=== PATIENT | male | born 1985 | race African-American/Black ===

== ENCOUNTER 2020-11-22 10:04 | Emergency (ER) | payer OTHER ==
[2020-11-22 10:17] VITALS: BP 129/62; TEMP 97.8; BMI 23.6
[2020-11-22] MEDS ORDERED: EPINEPHrine 1 MG/ML VIAL IM ONE (10:46)
[2020-11-22] MEDS ORDERED: FAMOTIDINE 20 MG/50 ML IVPB 20 MG/50 ML MG IVPB ONE ×2 (10:47→10:58)
[2020-11-22] MEDS ORDERED: DEXAMETHASONE SOD PHOSPHATE 10 MG/1 ML VIAL IVPUSH ONE (10:47)
[2020-11-22] MEDS ORDERED: DEXAMETHASONE SOD PHOSPHATE 10 MG/1 ML VIAL ONE (10:58)
[2020-11-22] MEDS ORDERED: EPINEPHrine/PF 1 MG/1 ML (1:1,000) AMPULE ONE (10:58)
[2020-11-22 12:01] VITALS: PULSE 80
== END 2020-11-22 13:17 | disposition home or self-care (01) ==
LOC: JER 10:04
PROC: 3E033GC Introduction of Other Therapeutic Substance into Peripheral Vein, Percutaneous Approach (ICD-10-PCS; principal; 2020-11-22)
PROC: 3E033GC Introduction of Other Therapeutic Substance into Peripheral Vein, Percutaneous Approach (ICD-10-PCS; 2020-11-22)
PROC: 3E023GC Introduction of Other Therapeutic Substance into Muscle, Percutaneous Approach (ICD-10-PCS; 2020-11-22)
PROC: 3E033GC Introduction of Other Therapeutic Substance into Peripheral Vein, Percutaneous Approach (ICD-10-PCS; 2020-11-22)
DX: L50.9 Urticaria, unspecified (principal)
CPT/HCPCS: 99284-25; J1100

== ENCOUNTER 2021-09-08 03:44 | Emergency (ER) | payer OTHER ==
[2021-09-08] MEDS ORDERED: metroNIDAZOLE 250 MG TABLET PO ONE (04:12)
[2021-09-08 04:18] VITALS: BMI 25.1
[2021-09-08] MEDS ORDERED: metroNIDAZOLE 500 MG TABLET PO ONE (04:45)
[2021-09-08] MEDS ORDERED: morphine CARPU-JECT 2 MG/1 ML DISP.SYRIN IVPUSH ONE ×2 (05:19→06:38)
[2021-09-08 06:38] LABS: BASO % 0.2 % (0-2.0); EOS % 2.3 % (0-4.5); HEMATOCRIT 40.1 % (35.4-49); HEMOGLOBIN 14.1 GM/dL (11.7-16.9); LYMPH % 17.9 % (8-40); MCH 31.4 pg (25.7-33.7); MCHC 35.1 g/dl (32.0-35.9); MEAN CELL VOLUME 89.6 fl (80-96); MEAN PLT VOLUME 9.1 fl (7.5-11.1); MONO % 7.5 % (3.8-10.2); NEUT % 72.1 % (42.8-82.8); PLATELET COUNT 145 10^3/uL (134-434); RBC 4.47 M/mm3 (4.00-5.60); RDW 12.6 % (11.9-15.9); WHITE BLOOD COUNT 10.3 K/mm3 (4.0-10.0)
[2021-09-08] MEDS ORDERED: CLINDAMYCIN 600MG PREMIX IVPB 600 MG/50 ML BAG IVPB ONE ×2 (06:38→06:43)
[2021-09-08 06:45] LABS: ALBUMIN 4.2 g/dl (3.4-5.0)
[2021-09-08 06:48] LABS: CREATININE 0.6 mg/dL (0.55-1.3)
[2021-09-08 06:49] LABS: BILIRUBIN,TOTAL 0.4 mg/dL (0.2-1)
[2021-09-08 06:50] LABS: TOT PROT 7.5 g/dl (6.4-8.2)
[2021-09-08] MEDS ORDERED: AMOX TR/POT CLAV 875MG/125MG TABLETS (FP) PO ONE (07:03)
[2021-09-08 07:06] VITALS: BP 129/81; PULSE 64; TEMP 98
[2021-09-08] MEDS ORDERED: AMOX TR/POT CLAV 875MG/125MG TABLETS (FP) ONE (07:11)
== END 2021-09-08 08:02 | disposition home or self-care (01) ==
LOC: JER 03:44
PROC: 3E033GC Introduction of Other Therapeutic Substance into Peripheral Vein, Percutaneous Approach (ICD-10-PCS; principal; 2021-09-08)
DX: R22.0 Localized swelling, mass and lump, head (principal)
CPT/HCPCS: 36415; 70486-TC; 80053; 85025; 85651; 86140; 99285-25; C9803-CS; U0003; U0005

== ENCOUNTER 2024-05-04 15:25 | Emergency (ER) | payer OTHER ==
[2024-05-04 15:38] VITALS: BP 116/78; PULSE 96; RESP 18; TEMP 98.9; BMI 25.8
[2024-05-04] MEDS ORDERED: IBUPROFEN 600 MG TABLET (FP) PO ONE (17:08)
[2024-05-04] MEDS: IBUPROFEN 600 MG TABLET (FP) PO ONE (17:10)
== END 2024-05-04 17:45 | disposition home or self-care (01) ==
LOC: JERFT 15:25
DX: M54.50 Low back pain, unspecified (principal); V49.40XA Driver injured in collision with unspecified motor vehicles in traffic accident, initial encounter; Y92.410 Unspecified street and highway as the place of occurrence of the external cause
CPT/HCPCS: 99283-25